=== PATIENT | male | born 1990 | race Caucasian/White ===

== ENCOUNTER → 2016-09-14 | Outpatient (CLI) | payer BC ==
[2016-09-14 08:18] LABS: SEMEN TIME OF COLLECTION 745
[2016-09-14 08:19] LABS: COLLECTION PROBLEM NO; DAYS OF ABSTINENCE 2; METHOD OF COLLECTION MASTURBATION; SEMEN COLOR GRAY OR GRAY-WHITE (GRY/GRYWHTE); SEMEN VOLUME 1.6 ML (>1.5); TRANSPORT PROBLEM NO; TYPE OF SPECIMEN CONTAINER CUP
[2016-09-14 09:19] LABS: SPERM VIABILITY STAIN NOT INDICATED % (>58%)
== END | disposition home or self-care (01) ==
LOC: C.LAB 08:10
PROVIDERS: ATTEND Obstetrics & Gynecology
DX: Z31.41 Encounter for fertility testing (principal)

== ENCOUNTER 2017-07-03 09:10 | Emergency (ER) | payer BC, OTHER ==
[~2017-07-03] VITALS: Ht 188 cm; Wt 107.5 kg
[2017-07-03 09:15] VITALS: TEMP 37.1; Ht 188 cm; Wt 107.5 kg
[2017-07-03] MEDS ORDERED: KETOROLAC TROMETHAMINE 30 MG/ML VIAL IV STA (09:39)
[2017-07-03] MEDS ORDERED: DiphenhydrAMINE HCL 50 MG/ML VIAL IV STA (09:39)
[2017-07-03] MEDS ORDERED: PROCHLORPERAZINE 5 MG/ML 2 ML VIAL IV STA (09:39)
--- NOTE | 2017-07-03 09:48 | EMERGENCY ROOM VISIT NOTE ---
History First contact with patient: 09:24 Chief Complaint: HEADACHE Stated Complaint: HEADACHE-SENT FROM [facility] History of Present Illness The patient is a 26 year old healthy male who presents to the Emergency Room with complaints of frontal headache x 1.5 weeks. Described as throbbing at times but mostly pressure like. Pain has been constant since sunday. Associated with mild photophobia, floaters in vision x 1 day. Denies any dizziness, rhinorrhea, congestion, cough, sore throat, n/v, d/c, dysuria. Hx of concussion x 3 during football practice in 2008. No recent trauma. No recent travel hx or sick exposure. Took 1500mg of ibuprofen on Sunday without much relief. This is not the worst headache of his life. Review of Systems see below Constitutional: No fever Eyes: + problem reported (floaters in vision and photophobia) Respiratory: No cough, No shortness of breath Cardiovascular: No chest pain Abdomen: No pain, No nausea, No vomiting, No diarrhea, No constipation Genitourinary - Male: No dysuria Neurologic: No weakness, No numbness/tingling Social History Smoking Status: Never Smoker Alcohol Use: occasionally Drug Use: none Marital Status: single Housing Status: lives with family Occupation Status: employed Current/Historical Medications No Active Prescriptions or Reported Meds Physical Exam Vital Signs Date Time Temp Pulse Resp B/P (MAP) Pulse Ox O2 Delivery O2 Flow Rate FiO2 07/03/17 11:21 68 18 128/70 97 Room Air 07/03/17 10:25 71 18 162/116 97 Room Air 07/03/17 09:15 37.1 81 18 138/89 97 Room Air Physical Exam see below General Appearance: no apparent distress Head: normocephalic, atraumatic Eyes: normal inspection, PERRL, EOMI, funduscopic exam normal ENT: normal ENT inspection Neck: supple, + pertinent finding (full neck ROM) Respiratory/Chest: lungs clear, normal breath sounds Cardiovascular: regular rate, rhythm, no murmur Abdomen / GI: normal bowel sounds, non tender, soft Extremities: no calf tenderness, no pedal edema Neurologic/Psych: inclusion paraeducator II-XII nml as tested, no motor/sensory deficits, alert , oriented x 3 Medical Decision & Procedures Medications Administered Medications (Trade) Dose Ordered Sig/Amy Route Start Time Stop Time Status Last Admin Dose Admin Prochlorperazine Edisylate (Compazine Inj) 10 mg NOW STAT IV 07/03/17 09:39 07/03/17 09:40 DC 07/03/17 10:27 10 MG Ketorolac Tromethamine (Toradol Inj) 30 mg NOW STAT IV 07/03/17 09:39 07/03/17 09:40 DC 07/03/17 10:27 30 MG Diphenhydramine HCl (Benadryl Inj) 25 mg NOW STAT IV 07/03/17 09:39 07/03/17 09:40 DC 07/03/17 10:27 25 MG Sodium Chloride 1,000 ml @ 999 mls/hr Q1H1M IV 07/03/17 09:45 08/02/17 09:44 07/03/17 10:48 999 MLS/HR Medical Decision 26 year old healthy male who presents to the Emergency Room with complaints of throbbing/pressure like frontal headache x 1.5 weeks. A/w mild photophobia and floaters in vision. Concerning for possible migraine headache vs. cluster headache vs. tension headache based on history and exam findings. No concern for meningitis or encephalitis at this point. Ordered migraine cocktail: Toradol 30mg IV, Benadryl 25mg IV, and compazine 10mg IV, IVF 1L bolus - received at 9:39 -re-evaluated at 11:37 and reports improvement in pain Head Ct w/ot contrast - no acute IC pathology Discharged home in stable condition with ibuprofen 800mg Q8H as needed for headache and PCP follow up in 1-2 days Blood Pressure Screening Patient's blood pressure: Normal blood pressure Impression Primary Impression: Migraine Resident Involvement: Resident Care Provided Care Provided: Adult ED Departure Information Dispostion Home / Self-Care Condition GOOD Prescriptions No Active Prescriptions or Reported Meds Referrals No Doctor, Assigned (PCP) Patient Instructions My [facility] Additional Instructions Please take ibuprofen up to 800mg every Q8H as needed for pain Follow up with your primary care doctor in 1-2 days
[2017-07-03] MEDS: SODIUM CHLORIDE 0.9% 1000ML 1,000 ML IV SCH ×2 (10:28→10:48)
--- NOTE | 2017-07-03 11:20 | DIAGNOSTIC IMAGING REPORT ---
HEAD WITHOUT CONTRAST (CT) CT DOSE: 638.56 mGycm HISTORY: Headache. Mental status change. headache x 1.5 weeks TECHNIQUE: Multiaxial CT images of the head were performed without the use of intravenous contrast. A dose lowering technique was utilized adhering to the principles of ALARA. Comparison: 11/20/2008 Findings: The paranasal sinuses and mastoid air cells are clear. The calvarium and skull base are intact. The ventricles and sulci are within normal limits. There is no mass, hematoma, midline shift, or acute infarct. Impression: No acute intracranial abnormality. The above report was generated using voice recognition software. It may contain grammatical, syntax or spelling errors. Electronically signed by: Tai Elizabeth M.D. 07/03/2017 11:19 AM Dictated Date/Time: 07/03/2017 11:17 AM
[2017-07-03 11:21] VITALS: BP 128/70; PULSE 68; O2SAT 97
--- NOTE | 2017-07-04 07:14 | EMERGENCY ROOM VISIT NOTE ---
ED Visit Note First contact with patient: 09:24 Resident Physician Supervision Note: I interviewed and examined the patient. Discussed with Dr. Werner and agree with findings and plan as documented in the note. Any exceptions or clarifications are listed here: This patient was evaluated and appeared to be in no significant distress. Laboratory work is fairly unrevealing. CT scan of the head is negative. Patient is likely suffering migraine type headache. He does have a history of multiple concussions in the past. He was feeling improved after the medications administered. He was discharged to follow-up with his PCP and will return to the ER for worsening symptoms or any medical concerns. Documented By: Cleopatra Ferreira
== END 2017-07-03 12:12 | disposition home or self-care (01) ==
LOC: C.EDB 09:11
DX: G43.909 Migraine, unspecified, not intractable, without status migrainosus (principal)

== ENCOUNTER → 2017-07-11 | Outpatient (CLI) | payer OTHER | END | disposition home or self-care (01) | LOC: C.LAB1850 07:08 | PROVIDERS: ATTEND Neuromusculoskeletal Medicine & OMM | DX: Z13.220 Encounter for screening for lipoid disorders (principal); Z13.1 Encounter for screening for diabetes mellitus ==

== ENCOUNTER → 2017-10-05 | Outpatient (CLI) | payer OTHER ==
[2017-10-05 14:13] LABS: HEP C IGG 13 YRS+OLDER_RFLX NEG (NEG)
== END | disposition home or self-care (01) ==
LOC: C.LAB1850 11:40
PROVIDERS: ATTEND Specialist
DX: Z11.59 Encounter for screening for other viral diseases (principal); Z11.3 Encounter for screening for infections with a predominantly sexual mode of transmission; Z11.4 Encounter for screening for human immunodeficiency virus [HIV]